=== PATIENT | male | born 1955 | race Caucasian/White ===

== ENCOUNTER → 2017-08-30 | Outpatient (CLI) | payer OTHER ==
[~2017-08-30] MED LIST: AEC81 PO; ATOR10 PO; CARV12.580 PO; CHOL200074 PO; CINNAMON PO; COQ10 PO; FURO40TA7 PO; INSU100I21 SQ; KRIL1CAP22 PO; LINA5TAB PO; LISI-617 PO; MAG PO; METF10004 PO; NOVOLOG SQ; POTA-9 PO; POTASSIUM PO; RIVA20TA PO; SPIR25TA PO; TAMS0.4C32 PO; [UNRECOGNIZED DRUG - OTHER] PO
== END | disposition home or self-care (01) ==
LOC: SHCH 12:32
PROVIDERS: ATTEND Internal Medicine Cardiovascular Disease
DX: I42.0 Dilated cardiomyopathy (principal)
CPT/HCPCS: 93306